=== PATIENT | male | born 1935 | race Caucasian/White ===

== ENCOUNTER 2019-03-30 01:25 | Inpatient (IN) | payer MEDICARE ==
[~2019-03-30] VITALS: Ht 188 cm; Wt 101.4 kg
[~2019-03-30 01:25] MED LIST: AMLO5TAB10 PO; ASPI-482 PO; CRESTOR40 MG PO; DOCU-109 PO; HYDR12.575 PO; Hydrocodone/Acetaminophen PO; METF10007 PO; METH250T3 PO; QUIN40TA16 PO
[2019-03-30] MEDS ORDERED: IV NORMAL SALINE 1000ML BAG 1,000 ML IV ONE (01:45)
[2019-03-30] MEDS ORDERED: ACETAMINOPHEN 500 MG TABLET PO ONE (01:45)
[2019-03-30 02:07] LABS: BASO # 0.1 x10^3/uL (0.0-0.2); BASO % 1 % (0-3); EOS # 0.3 x10^3/uL (0.0-0.7); EOS % 2 % (0-3); HEMATOCRIT 42.3 % (39.0-53.0); HEMOGLOBIN 14.2 g/dL (13.0-17.5); LYMPH # 0.7 x10^3/uL (1.0-4.8); LYMPH % 7 % (24-48); MEAN CORPUSCULAR HEMOGLOBIN 28 pg (25-35); MEAN CORPUSCULAR HGB CONC 34 g/dL (31-37); MEAN CORPUSCULAR VOLUME 83 fL (79-100); MONO # 0.7 x10^3/uL (0.0-1.1); MONO % 6 % (0-9); NEUT % 84 % (31-73); PLATELET COUNT 186 x10^3/uL (140-400); RED BLOOD COUNT 5.07 x10^6/uL (4.30-5.70); RED CELL DISTRIBUTION WIDTH 14.5 % (11.5-14.5); WHITE BLOOD COUNT 10.7 x10^3/uL (4.0-11.0)
[2019-03-30 02:22] LABS: BILIRUBIN,URINE NEGATIVE (NEG); CLARITY,URINE TURBID; COLOR,URINE YELLOW; NITRITE,URINE NEGATIVE (NEG); PROTEIN,URINE 100 mg/dL (NEG-TRACE)
[2019-03-30 02:22] LABS: CALCIUM 9.8 mg/dL (8.5-10.1); CREATININE 1.6 mg/dL (0.7-1.3); GFR 41.6; POTASSIUM 3.9 mmol/L (3.5-5.1)
[2019-03-30 02:25] LABS: INFLUENZA A PATIENT NEGATIVE (NEGATIVE); INFLUENZA B PATIENT NEGATIVE (NEGATIVE)
[2019-03-30 02:29] LABS: BACTERIA,URINE MANY /HPF (0-FEW); SQUAMOUS EPITHELIAL CELL,UR FEW /LPF; WBC,URINE TNTC /HPF (0-4)
[2019-03-30 02:33] LABS: ALBUMIN 3.6 g/dL (3.4-5.0); ALBUMIN/GLOBULIN RATIO 0.9 (1.0-1.7); TOTAL BILIRUBIN 0.5 mg/dL (0.2-1.0); TOTAL PROTEIN 7.7 g/dL (6.4-8.2)
[2019-03-30] MEDS ORDERED: cefTRIAXone IV Push 1 GM VIAL. IVP ONE (02:45)
[2019-03-30 03:44] VITALS: BP 121/65
--- NOTE | 2019-03-30 03:44 | PHYS DOC ---
Past Medical History Past Medical History: Diabetes-Type II, High Cholesterol, Hypertension, TIA Past Surgical History: Knee Replacement, Other Additional Past Surgical Histo: BILAT KNEE, 'CAROTID SURGERY', 'BACK SURGERY' Alcohol Use: None Drug Use: None Adult General Chief Complaint Chief Complaint: WEAKNESS/GENERALIZED HPI HPI Patient is a 83 year old male who is presenting with weakness and basically just could not get up out of a chair tonight so called 911 for assistance. Patient was noted to have a temperature of 101 by paramedics and brought here for evaluation he says he actually feels okay does have a runny nose no sore throat no cough no chest pain or shortness of breath no abdominal pain no vomiting denies any trouble urinating. Review of Systems Review of Systems Respiratory: Denies cough or shortness of breath [] Cardiovascular: No additional information not addressed in HPI [] GI: Denies abdominal pain, nausea, vomiting, bloody stools or diarrhea [] : Denies dysuria or hematuria [] Musculoskeletal: Denies back pain or joint pain [] Integument: Denies rash or skin lesions [] All other systems were reviewed and found to be within normal limits, except as documented in this note. Current Medications Current Medications Current Medications Medications (Trade) Dose Ordered Sig/Genesis Start Time Stop Time Status Last Admin Dose Admin Acetaminophen (Tylenol) 1,000 mg 1X ONCE 03/30/19 01:45 03/30/19 01:47 DC 03/30/19 01:45 1,000 MG Ceftriaxone Sodium (Rocephin) 1 gm 1X ONCE 03/30/19 02:45 03/30/19 02:46 DC 03/30/19 02:45 1 GM Sodium Chloride 1,000 ml @ 1,000 mls/hr 1X ONCE 03/30/19 01:45 03/30/19 02:44 DC 03/30/19 01:45 1,000 MLS/HR Allergies Allergies Allergies Coded Allergies Type Severity Reaction Last Updated Verified No Known Drug Allergies 02/25/14 No Physical Exam Physical Exam Constitutional: Well developed, well nourished, no acute distress, non-toxic appearance. [] HENT: Normocephalic, atraumatic, bilateral external ears normal, oropharynx moist, there are some scattered exudate in the posterior oropharynx Eyes: PERRLA, EOMI, conjunctiva normal, no discharge. [] Neck: Normal range of motion, no tenderness, supple, no stridor. [] Cardiovascular:Heart rate regular rhythm, no murmur [] Lungs & Thorax: Bilateral breath sounds clear to auscultation [] Abdomen: Bowel sounds normal, soft, no tenderness, no masses, no pulsatile masses. [] Skin: Warm, dry, no erythema, no rash. [] Back: No tenderness, no CVA tenderness. [] Extremities: No tenderness, no cyanosis, no clubbing, ROM intact, no edema. [] Neurologic: Alert and oriented X 3, normal motor function, normal sensory function, no focal deficits noted. [] Psychologic: Affect normal, judgement normal, mood normal. [] Current Patient Data Vital Signs Vital Signs Date Time Temp Pulse Resp B/P (MAP) Pulse Ox O2 Delivery O2 Flow Rate FiO2 03/30/19 01:25 100.3 108 18 163/76 (105) 96 Room Air 100.3 Lab Values Laboratory Tests Test 03/30/19 01:45 03/30/19 01:50 03/30/19 02:10 Influenza Type A Antigen Negative (NEGATIVE) Influenza Type B Antigen Negative (NEGATIVE) White Blood Count 10.7 x10^3/uL (4.0-11.0) Red Blood Count 5.07 x10^6/uL (4.30-5.70) Hemoglobin 14.2 g/dL (13.0-17.5) Hematocrit 42.3 % (39.0-53.0) Mean Corpuscular Volume 83 fL (79-100) Mean Corpuscular Hemoglobin 28 pg (25-35) Mean Corpuscular Hemoglobin Concent 34 g/dL (31-37) Red Cell Distribution Width 14.5 % (11.5-14.5) Platelet Count 186 x10^3/uL (140-400) Neutrophils (%) (Auto) 84 % (31-73) H Lymphocytes (%) (Auto) 7 % (24-48) L Monocytes (%) (Auto) 6 % (0-9) Eosinophils (%) (Auto) 2 % (0-3) Basophils (%) (Auto) 1 % (0-3) Neutrophils # (Auto) 9.0 x10^3/uL (1.8-7.7) H Lymphocytes # (Auto) 0.7 x10^3/uL (1.0-4.8) L Monocytes # (Auto) 0.7 x10^3/uL (0.0-1.1) Eosinophils # (Auto) 0.3 x10^3/uL (0.0-0.7) Basophils # (Auto) 0.1 x10^3/uL (0.0-0.2) Sodium Level 141 mmol/L (136-145) Potassium Level 3.9 mmol/L (3.5-5.1) Chloride Level 103 mmol/L (98-107) Carbon Dioxide Level 27 mmol/L (21-32) Anion Gap 11 (6-14) Blood Urea Nitrogen 27 mg/dL (8-26) H Creatinine 1.6 mg/dL (0.7-1.3) H Estimated GFR (Cockcroft-Gault) 41.6 BUN/Creatinine Ratio 17 (6-20) Glucose Level 187 mg/dL (70-99) H Lactic Acid Level 1.8 mmol/L (0.4-2.0) Calcium Level 9.8 mg/dL (8.5-10.1) Total Bilirubin 0.5 mg/dL (0.2-1.0) Aspartate Amino Transferase (AST) 14 U/L (15-37) L Alanine Aminotransferase (ALT) 17 U/L (16-63) Alkaline Phosphatase 75 U/L (46-116) Troponin I Quantitative < 0.017 ng/mL (0.000-0.055) Total Protein 7.7 g/dL (6.4-8.2) Albumin 3.6 g/dL (3.4-5.0) Albumin/Globulin Ratio 0.9 (1.0-1.7) L Lipase 144 U/L (73-393) Procalcitonin < 0.10 ng/mL (0.00-0.10) Urine Collection Type Unknown Urine Color Yellow Urine Clarity Turbid Urine pH 6.0 Urine Specific [place] 1.020 Urine Protein 100 mg/dL (NEG-TRACE) Urine Glucose (UA) >=1000 mg/dL (NEG) Urine Ketones (Stick) Negative mg/dL (NEG) Urine Blood Moderate (NEG) Urine Nitrite Negative (NEG) Urine Bilirubin Negative (NEG) Urine Urobilinogen Dipstick 1.0 mg/dL (0.2 mg/dL) Urine Leukocyte Esterase Large (NEG) Urine RBC 6-10 /HPF (0-2) Urine WBC Tntc /HPF (0-4) Urine Squamous Epithelial Cells Few /LPF Urine Bacteria Many /HPF (0-FEW) Urine Mucus Slight /LPF Laboratory Tests 03/30/19 01:50 Laboratory Tests 03/30/19 01:50 EKG EKG []Very poor baseline but no obvious STEMI was identified fairly difficult to assess for the rhythm probably sinus Radiology/Procedures Radiology/Procedures [] Impressions: Chest x-ray no definite pneumonia was identified final read is currently pending. Course & Med Decision Making Course & Med Decision Making Pertinent Labs and Imaging studies reviewed. (See chart for details) []Blood pressure 120 systolic this is an 83-year-old male with the above past medical history who is presenting with fever weakness found to have temp of 101 for paramedics 100.3 here ER workup reveals a UTI flu swab negative rapid strep test negative due to his weakness we have admitted him for IV antibiotics and fluids to the service of Dr. glenys Villeda Disclaimer Christiana Disclaimer This electronic medical record was generated, in whole or in part, using a voice recognition dictation system. Departure Departure Impression: Primary Impression: UTI (urinary tract infection) Disposition: ADMITTED INPATIENT Admitting Physician: HIMEfra Condition: STABLE Referrals: RONEL OQUENDO DO (PCP) ROYAL HERNÁNDEZ MD Mar 30, 2019 03:44
[2019-03-30] MEDS: IV NORMAL SALINE 1000ML BAG 1,000 ML IV SCH ×2 (04:29→18:21)
--- NOTE | 2019-03-30 06:40 | RAD ---
EXAM: CHEST ONE VIEW. HISTORY: Fever. COMPARISON: None. FINDINGS: A frontal view of the chest is obtained. The projection is lordotic. There are no confluent infiltrates. There is no pneumothorax or pleural effusion. The heart is not enlarged. IMPRESSION: 1. No confluent infiltrates. Electronically signed by: Marilia Price MD (03/30/2019 6:38 AM) [facility]
[2019-03-30 07:00] VITALS: BP 111/79
[2019-03-30] MEDS ORDERED: HYDROCODONE PO PRN (08:45)
[2019-03-30] MEDS ORDERED: ACETAMINOPHEN PO PRN (08:45)
[2019-03-30] MEDS ORDERED: DEXTROSE 50% 25 GM / 50ML DISP.SYRIN. IV PRN (08:45)
[2019-03-30] MEDS ORDERED: DOCUSATE SODIUM 100 MG CAPSULE. PO PRN (08:45)
--- NOTE | 2019-03-30 08:45 | PDOC1 ---
History and Physical Date of Admission Date of Admission DATE: 03/30/19 TIME: 08:42 Identification/Chief Complaint Chief Complaint Fever Source Source: Patient History of Present Illness History of Present Illness Mr Mccallum is an 83 yo M w/ PMHx Diabetes-Type II, High Cholesterol, Hypertension, TIA who is presenting with weakness and basically just could not get up out of a chair on 03/29 and so his called 911 for assistance. Patient was noted to have a temperature of 101 by paramedics and brought here for evaluation he says he actually feels okay does have a runny nose no sore throat no cough no chest pain or shortness of breath no abdominal pain no vomiting denies any trouble urinating. Found with hematuria and leukocyte esterase posi tive. Negative CXR, negative flu swab, but tachycardic and febrile called for admission for sepsis and possible UTI. EKG reviewed NSR but low quality. He was noted with Cr of 1.6, no hx of renal disease. He also notes urinary frequency and abdominal fullness. 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 After some IVF and rocephin he feels a bit improved. Temp down to 100.3F Past Medical History Cardiovascular: HTN, Hyperlipidemia Pulmonary: No pertinent hx CENTRAL NERVOUS SYSTEM: TIA GI: No pertinent hx Heme/Onc: No pertinent hx Hepatobiliary: No pertinent hx Psych: No pertinent hx Rheumatologic: No pertinent hx Infectious disease: No pertinent hx Renal/: No pertinent hx Endocrine: Diabetes Dermatology: No pertinent hx Past Surgical History Past Surgical History: Total knee replacement, No pertinent history (Lumbar laminectomy. Carotid endarterectomy) Family History Family History: Cancer (Pancreatic in brother), Hypertension (Father) Social History Smoke: No ALCOHOL: none Drugs: None Current Medications Current Medications Current Medications Acetaminophen (Tylenol) 1,000 mg 1X ONCE PO Last administered on 03/30/19at 01:45; Start 03/30/19 at 01:45; Stop 03/30/19 at 01:47; Status DC Sodium Chloride 1,000 ml @ 1,000 mls/hr 1X ONCE IV Last administered on 03/30/19at 01:45; Start 03/30/19 at 01:45; Stop 03/30/19 at 02:44; Status DC Ceftriaxone Sodium (Rocephin) 1 gm 1X ONCE IVP Last administered on 03/30/19at 02:45; Start 03/30/19 at 02:45; Stop 03/30/19 at 02:46; Status DC Sodium Chloride 1,000 ml @ 75 mls/hr [id number] IV Last administered on 03/30/19at 04:29; Start 03/30/19 at 03:30; Stop 03/31/19 at 03:29 Insulin Glargine (Lantus Syringe) 24 unit QHS SQ ; Start 03/30/19 at 21:00 Active Scripts Active [Hydrocodone/Acetaminophen] 1 TAB Tablet 2 Tab PO PRN Q6HRS PRN [Hydrocodone/Acetaminophen] 1 TAB Tablet 1 Tab PO PRN Q6HRS PRN Colace (Docusate Sodium) 100 Mg Capsule 100 Mg PO BID PRN Reported Hydrochlorothiazide Capsule (Hydrochlorothiazide) 12.5 Mg Capsule 12.5 Mg PO DAILY last dose this am next dose tomorrow am Crestor (Rosuvastatin Calcium) 40 Mg Tablet 1 Tab PO HS last dose last evening next dose this evening Quinapril Hcl 40 Mg Tablet 1 Tab PO BID last dose this am next dose this evening Methyldopa 250 Mg Tablet 1 Tab PO BID last dose this am next dose this evening Metformin Hcl 1,000 Mg Tablet 1 Tab PO BID last dose this am nest dose this evening with supper Amlodipine Besylate 5 Mg Tablet 1 Tab PO BID last dose this am next dose this evening Aspir 81 (Aspirin) 81 Mg Tablet. 1 Tab PO DAILY last dose this am next dose tomorrow morning Allergies Allergies: Coded Allergies: No Known Drug Allergies (Unverified , 02/25/14) ROS General: YES: Fatigue, Malaise, Appetite; No: Chills, Night Sweats, Other PSYCHOLOGICAL ROS: YES: Disorientation, Memory difficulties; No: Anxiety, Behavioral Disorder, Concentration difficultie, Decreased libido, Depression, Hallucinations, Hostility, Irritablity, Mood Swings, Obsessive thoughts, Physical abuse, Sexual abuse, Sleep disturbances, Suicidal ideation, Other Eyes: No Blurry vision, No Decreased vision, No Double vision, No Dry eyes, No Excessive tearing, No Eye Pain, No Itchy Eyes, No Loss of vision, No Photophobia, No Scotomata, No Uses contacts, No Uses glasses, No Other HEENT: No: Heacaches, Visual Changes, Hearing change, Nasal congestion, Nasal discharge, Oral lesions, Sinus pain, Sore Throat, Epistaxis, Sneezing, Snoring, Tinnitus, Vertigo, Vocal changes, Other ALLERGY AND IMMUNOLOGY: No: Hives, Insect Bite Sensitivity, Itchy/Watery Eyes, Nasal Congestion, Post Nasal Drip, Seasonal Allergies, Other Hematological and Lymphatic: No: Bleeding Problems, Blood Clots, Blood Transfusions, Brusing, Night Sweats, Pallor, Swollen Lymph Nodes, Other ENDOCRINE: No: Breast Changes, Galactorrhea, Hair Pattern Changes, Hot Flashes, Malaise/lethargy, Mood Swings, Palpitations, Polydipsia/polyuria, Skin Changes, Temperature Intolerance, Unexpected Weight Changes, Other Breast: No New/Changing Breast Lumps, No Nipple changes, No Nipple discharge, No Other Respiratory: No: Cough, Hemoptysis, Orthopnea, Pleuritic Pain, Shortness of breath, SOB with excertion, Sputum Changes, Stridor, Tachypnea, Wheezing, Other Cardiovascular: No Chest Pain, No Palpitations, No Orthopnea, No Paroxysmal Noc. Dyspnea, No Edema, No Lt Headedness, No Other Gastrointestinal: No Nausea, No Vomiting, No Abdominal Pain, No Diarrhea, No Constipation, No Melena, No Hematochezia, No Other Genitourinary: YES Dysuria, YES Frequency, YES Retention; No Incontinence, No Hematuria, No Discharge, No Urgency, No Pain, No Flank Pain, No Other, No , No , No , No , No , No , No Musculoskeletal: No Gait Disturbance, No Joint Pain, No Joint Stiffness, No Joint Swelling, No Muscle Pain, No Muscular Weakness, No Pain In:, No Swelling In:, No Other Neurological: No Behavorial Changes, No Bowel/Bladder ControlChng, No Confusion, No Dizziness, No Gait Disturbance, No Headaches, No Impaired Coord/balance, No Memory Loss, No Numbness/Tingling, No Seizures, No Speech Problems, No Tremors, No Visual Changes, No Weakness, No Other Skin: No Dry Skin, No Eczema, No Hair Changes, No Lumps, No Mole Changes, No Mottling, No Nail Changes, No Pruritus, No Rash, No Skin Lesion Changes, No Other, No Acne Physical Exam General: Alert, Cooperative, No acute distress HEENT: Atraumatic, PERRLA, EOMI, Mucous membr. moist/pink Lungs: Clear to auscultation, Normal air movement Heart: S1S2, RRR, no gallops, no murmurs Abdomen: Normal bowel sounds, Soft, No hepatosplenomegaly, No masses, Other (Suprapubic tenderness) Male Genitals Exam: normal genitalia, other (Enlarged prostate) Extremities: No clubbing, No cyanosis, No edema, Normal pulses, No tenderness/swelling Skin: No rashes, No breakdown, No significant lesion Neuro: Normal gait, Normal speech, Strength at 5/5 X4 ext, Normal tone, Sensation intact, Cranial nerves 3-12 NL, Reflexes 2+ Psych/Mental Status: Mental status NL, Mood NL Vitals Vitals Vital Signs Date Time Temp Pulse Resp B/P (MAP) Pulse Ox O2 Delivery O2 Flow Rate FiO2 03/30/19 07:00 98.4 74 18 111/79 (90) 98 Room Air 98.4 Labs Labs Laboratory Tests Test 03/30/19 01:45 03/30/19 01:50 03/30/19 02:10 Influenza Type A Antigen Negative (NEGATIVE) Influenza Type B Antigen Negative (NEGATIVE) Group A Streptococcus Rapid Negative (NEGATIVE) White Blood Count 10.7 x10^3/uL (4.0-11.0) Red Blood Count 5.07 x10^6/uL (4.30-5.70) Hemoglobin 14.2 g/dL (13.0-17.5) Hematocrit 42.3 % (39.0-53.0) Mean Corpuscular Volume 83 fL (79-100) Mean Corpuscular Hemoglobin 28 pg (25-35) Mean Corpuscular Hemoglobin Concent 34 g/dL (31-37) Red Cell Distribution Width 14.5 % (11.5-14.5) Platelet Count 186 x10^3/uL (140-400) Neutrophils (%) (Auto) 84 % (31-73) Lymphocytes (%) (Auto) 7 % (24-48) Monocytes (%) (Auto) 6 % (0-9) Eosinophils (%) (Auto) 2 % (0-3) Basophils (%) (Auto) 1 % (0-3) Neutrophils # (Auto) 9.0 x10^3/uL (1.8-7.7) Lymphocytes # (Auto) 0.7 x10^3/uL (1.0-4.8) Monocytes # (Auto) 0.7 x10^3/uL (0.0-1.1) Eosinophils # (Auto) 0.3 x10^3/uL (0.0-0.7) Basophils # (Auto) 0.1 x10^3/uL (0.0-0.2) Sodium Level 141 mmol/L (136-145) Potassium Level 3.9 mmol/L (3.5-5.1) Chloride Level 103 mmol/L (98-107) Carbon Dioxide Level 27 mmol/L (21-32) Anion Gap 11 (6-14) Blood Urea Nitrogen 27 mg/dL (8-26) Creatinine 1.6 mg/dL (0.7-1.3) Estimated GFR (Cockcroft-Gault) 41.6 BUN/Creatinine Ratio 17 (6-20) Glucose Level 187 mg/dL (70-99) Lactic Acid Level 1.8 mmol/L (0.4-2.0) Calcium Level 9.8 mg/dL (8.5-10.1) Total Bilirubin 0.5 mg/dL (0.2-1.0) Aspartate Amino Transf (AST/SGOT) 14 U/L (15-37) Alanine Aminotransferase (ALT/SGPT) 17 U/L (16-63) Alkaline Phosphatase 75 U/L (46-116) Troponin I Quantitative < 0.017 ng/mL (0.000-0.055) Total Protein 7.7 g/dL (6.4-8.2) Albumin 3.6 g/dL (3.4-5.0) Albumin/Globulin Ratio 0.9 (1.0-1.7) Lipase 144 U/L (73-393) Procalcitonin < 0.10 ng/mL (0.00-0.10) Urine Collection Type Unknown Urine Color Yellow Urine Clarity Turbid Urine pH 6.0 Urine Specific [place] 1.020 Urine Protein 100 mg/dL (NEG-TRACE) Urine Glucose (UA) >=1000 mg/dL (NEG) Urine Ketones (Stick) Negative mg/dL (NEG) Urine Blood Moderate (NEG) Urine Nitrite Negative (NEG) Urine Bilirubin Negative (NEG) Urine Urobilinogen Dipstick 1.0 mg/dL (0.2 mg/dL) Urine Leukocyte Esterase Large (NEG) Urine RBC 6-10 /HPF (0-2) Urine WBC Tntc /HPF (0-4) Urine Squamous Epithelial Cells Few /LPF Urine Bacteria Many /HPF (0-FEW) Urine Mucus Slight /LPF Laboratory Tests Test 03/30/19 01:45 03/30/19 01:50 03/30/19 02:10 Influenza Type A Antigen Negative (NEGATIVE) Influenza Type B Antigen Negative (NEGATIVE) Group A Streptococcus Rapid Negative (NEGATIVE) White Blood Count 10.7 x10^3/uL (4.0-11.0) Red Blood Count 5.07 x10^6/uL (4.30-5.70) Hemoglobin 14.2 g/dL (13.0-17.5) Hematocrit 42.3 % (39.0-53.0) Mean Corpuscular Volume 83 fL (79-100) Mean Corpuscular Hemoglobin 28 pg (25-35) Mean Corpuscular Hemoglobin Concent 34 g/dL (31-37) Red Cell Distribution Width 14.5 % (11.5-14.5) Platelet Count 186 x10^3/uL (140-400) Neutrophils (%) (Auto) 84 % (31-73) Lymphocytes (%) (Auto) 7 % (24-48) Monocytes (%) (Auto) 6 % (0-9) Eosinophils (%) (Auto) 2 % (0-3) Basophils (%) (Auto) 1 % (0-3) Neutrophils # (Auto) 9.0 x10^3/uL (1.8-7.7) Lymphocytes # (Auto) 0.7 x10^3/uL (1.0-4.8) Monocytes # (Auto) 0.7 x10^3/uL (0.0-1.1) Eosinophils # (Auto) 0.3 x10^3/uL (0.0-0.7) Basophils # (Auto) 0.1 x10^3/uL (0.0-0.2) Sodium Level 141 mmol/L (136-145) Potassium Level 3.9 mmol/L (3.5-5.1) Chloride Level 103 mmol/L (98-107) Carbon Dioxide Level 27 mmol/L (21-32) Anion Gap 11 (6-14) Blood Urea Nitrogen 27 mg/dL (8-26) Creatinine 1.6 mg/dL (0.7-1.3) Estimated GFR (Cockcroft-Gault) 41.6 BUN/Creatinine Ratio 17 (6-20) Glucose Level 187 mg/dL (70-99) Lactic Acid Level 1.8 mmol/L (0.4-2.0) Calcium Level 9.8 mg/dL (8.5-10.1) Total Bilirubin 0.5 mg/dL (0.2-1.0) Aspartate Amino Transf (AST/SGOT) 14 U/L (15-37) Alanine Aminotransferase (ALT/SGPT) 17 U/L (16-63) Alkaline Phosphatase 75 U/L (46-116) Troponin I Quantitative < 0.017 ng/mL (0.000-0.055) Total Protein 7.7 g/dL (6.4-8.2) Albumin 3.6 g/dL (3.4-5.0) Albumin/Globulin Ratio 0.9 (1.0-1.7) Lipase 144 U/L (73-393) Procalcitonin < 0.10 ng/mL (0.00-0.10) Urine Collection Type Unknown Urine Color Yellow Urine Clarity Turbid Urine pH 6.0 Urine Specific [place] 1.020 Urine Protein 100 mg/dL (NEG-TRACE) Urine Glucose (UA) >=1000 mg/dL (NEG) Urine Ketones (Stick) Negative mg/dL (NEG) Urine Blood Moderate (NEG) Urine Nitrite Negative (NEG) Urine Bilirubin Negative (NEG) Urine Urobilinogen Dipstick 1.0 mg/dL (0.2 mg/dL) Urine Leukocyte Esterase Large (NEG) Urine RBC 6-10 /HPF (0-2) Urine WBC Tntc /HPF (0-4) Urine Squamous Epithelial Cells Few /LPF Urine Bacteria Many /HPF (0-FEW) Urine Mucus Slight /LPF Images Images CXR - A frontal view of the chest is obtained. The projection is lordotic. There are no confluent infiltrates. There is no pneumothorax or pleural effusion. The heart is not enlarged. VTE Prophylaxis Ordered VTE Prophylaxis Devices: Yes VTE Pharmacological Prophylaxi: Yes Assessment/Plan Assessment/Plan A/P: Dysuria - with history of urinary retention, enlarged prostate, positive UA, started on empiric rocephin. Will get abdominal US to assess bladder and kidneys. Check PSA, f/u culture Unable to walk - likely 2/2 weakness from infection Sepsis - Given IVF and empiric rocephin Acute confusion - with history of MCI per . Likely 2/2 infectious state, will monitor DM - will hold metformin for MAKI. Basal bolus plus insulin while in house MAKI - likely vasomotor nephropathy from poor PO intake HTN - cont meds HLD - cont meds TIAs - will cont statin and ASA FEN - NPO until abdominal US, then ADA diet PPX - lovenox FULL CODE Dispo - inpatient for sepsis 2/2 UTI in male RAMAN ORELLANA MD Mar 30, 2019 08:45
[2019-03-30] MEDS: amLODIPine BESYLATE 5 MG TABLET PO SCH ×2 (10:23→21:39)
[2019-03-30] MEDS: ASPIRIN ENTERIC COATED 81 MG TABLET.DR. PO SCH (10:23)
[2019-03-30] MEDS: hydroCHLOROthiazide 12.5 MG CAPSULE PO SCH (10:23)
[2019-03-30] MEDS: METHYLDOPA 250 MG TABLET PO SCH ×2 (10:23→21:39)
[2019-03-30] MEDS: LISINOPRIL 20 MG TABLET PO SCH ×2 (10:24→21:38)
[2019-03-30 11:00] VITALS: BP 120/86
--- NOTE | 2019-03-30 11:16 | RAD ---
Indication:Renal failure. TECHNIQUE: Grayscale, color Doppler of the kidneys and bladder obtained. COMPARISON:None FINDINGS: The right kidney measures 12.8 x 6.1 x 5.3 cm without hydronephrosis. Left kidney measures 11.8 x 5.0 x 6.8 cm without hydronephrosis. Prostate is mildly enlarged measuring 5.7 cm in longest dimension. Post void urinary bladder volume of 248 cc. IMPRESSION: 1. No hydronephrosis. 2. Mild prostatomegaly. Correlate with physical exam and PSA. 3. Significant residual post void bladder volume. Electronically signed by: Alf Stapleton DO (03/30/2019 11:13 AM) [facility]
[2019-03-30] MEDS: INSULIN LISPRO 300 UNITS/3 ML VIAL. SQ SCH ×3 (11:30→21:00)
[2019-03-30] MEDS: TAMSULOSIN 0.4 MG CAP.ER.24H. PO SCH (12:04)
[2019-03-30] MEDS: ENOXAPARIN 40 MG/0.4 ML SYRINGE. SQ SCH (12:05)
[2019-03-30] MEDS: cefTRIAXone IV Push 1 GM VIAL. IVP SCH (12:05)
[2019-03-30 14:49] VITALS: BP 130/56
[2019-03-30 19:00] VITALS: BP 128/69
[2019-03-30] MEDS: INSULIN GLARGINE SYRINGE. SQ SCH (21:00)
[2019-03-30] MEDS: LACTOBACILLUS RHAMNOSUS GG 1 CAPSULE. PO SCH (21:38)
[2019-03-30] MEDS: ATORVASTATIN CALCIUM 40 MG TABLET. PO SCH (21:39)
[2019-03-30 23:02] VITALS: BP 126/62
[2019-03-31] MEDS ORDERED: HYDROmorphone 2 MG/ML VIAL IVP PRN
[2019-03-31] MEDS ORDERED: HALOPERIDOL LACTATE 5 MG/ML VIAL. IVP PRN
[2019-03-31 03:18] VITALS: BP 137/51
[2019-03-31] MEDS: INSULIN LISPRO 300 UNITS/3 ML VIAL. SQ SCH ×4 (07:30→21:53)
[2019-03-31 08:20] VITALS: BP 142/60
[2019-03-31] MEDS: LISINOPRIL 20 MG TABLET PO SCH ×2 (09:29→21:46)
[2019-03-31] MEDS: hydroCHLOROthiazide 12.5 MG CAPSULE PO SCH (09:29)
[2019-03-31] MEDS: TAMSULOSIN 0.4 MG CAP.ER.24H. PO SCH (09:29)
[2019-03-31] MEDS: amLODIPine BESYLATE 5 MG TABLET PO SCH ×2 (09:30→21:48)
[2019-03-31] MEDS: LACTOBACILLUS RHAMNOSUS GG 1 CAPSULE. PO SCH ×2 (09:30→21:45)
[2019-03-31] MEDS: cefTRIAXone IV Push 1 GM VIAL. IVP SCH (09:30)
[2019-03-31] MEDS: ASPIRIN ENTERIC COATED 81 MG TABLET.DR. PO SCH (09:30)
[2019-03-31] MEDS: METHYLDOPA 250 MG TABLET PO SCH ×2 (09:31→21:45)
[2019-03-31 11:10] VITALS: BP 139/63
--- NOTE | 2019-03-31 11:11 | EKG ---
[facility] [address] [place] [address] Test Date: 2019-03-30 Test Time: 01:37:49 Pat Name: ANDREW YUSUF Department: Room: 554 1 Gender: M Curriculum Counselor: : [id number] Requested By: ROYAL HERNÁNDEZ Order Number: [id number] Reading MD: Doyle Roy MD Measurements Intervals [place] Rate: 110 P: -51 AL: 96 QRS: -46 QRSD: 96 T: 31 QT: 306 QTc: 419 Interpretive Statements SIGNIFICANT BASELINE ARTIFACT PROBABLE SINUS TACHYCARDIA Electronically Signed On 04-09-2019 9:44:50 CDT by Doyle Roy MD
--- NOTE | 2019-03-31 11:12 | PDOC ---
PROGRESS NOTES History of Present Illness History of Present Illness Images Images CXR - A frontal view of the chest is obtained. The projection is lordotic. There are no confluent infiltrates. There is no pneumothorax or pleural effusion. The heart is not enlarged. VTE Prophylaxis Ordered VTE Prophylaxis Devices: Yes VTE Pharmacological Prophylaxi: Yes Assessment/Plan Assessment/Plan Dysuria - with history of urinary retention, /// empiric rocephin. Will get abdominal US to assess bladder and kidneys. Check PSA, f/u culture Unable to walk - likely 2/2 weakness //ENCEPHALOPATHY, METABOLIC Sepsis - Given IVF and empiric rocephin Significant residual post void bladder volume. Acute confusion - with history of MCI per . Likely 2/2 infectious state, will monitor DM - will hold metformin for MAKI. Basal bolus plus insulin MAKI - likely vasomotor nephropathy from poor PO intake HTN - cont meds HLD - cont meds TIAs - will cont statin and ASA FEN - ADA diet PPX - lovenox FULL CODE Dispo - inpatient for sepsis 2/2 UTI in male UROLOGY CONSULT MIDLINE OR PICC 29 MIN PT EXAM, CHART REVIEW, > 50% OF TIME SPENT WITH EXAM, CHART REVIEW, PT CARE COORDINATION Vitals Vitals Vital Signs Date Time Temp Pulse Resp B/P (MAP) Pulse Ox O2 Delivery O2 Flow Rate FiO2 03/31/19 09:31 86 137/51 03/31/19 08:20 98.3 20 94 Room Air 98.3 Physical Exam General: Alert, Cooperative, No acute distress Heart: Regular rate Lungs: Clear Abdomen: Normal bowel sounds, Soft, No hepatosplenomegaly, No masses, Other (Suprapubic tenderness) Extremities: No clubbing, No cyanosis, No edema, Normal pulses, No tenderness/swelling Skin: No rashes, No breakdown, No significant lesion Labs LABS Indication:Renal failure. TECHNIQUE: Grayscale, color Doppler of the kidneys and bladder obtained. COMPARISON:None FINDINGS: The right kidney measures 12.8 x 6.1 x 5.3 cm without hydronephrosis. Left kidney measures 11.8 x 5.0 x 6.8 cm without hydronephrosis. Prostate is mildly enlarged measuring 5.7 cm in longest dimension. Post void urinary bladder volume of 248 cc. IMPRESSION: 1. No hydronephrosis. 2. Mild prostatomegaly. Correlate with physical exam and PSA. 3. Significant residual post void bladder volume. Electronically signed by: Alf Stapleton DO (03/30/2019 11:13 AM) [facility] DICTATED and SIGNED BY: ALF STAPLETON DO DATE: 03/30/19 1113 EXAM: CHEST ONE VIEW. HISTORY: Fever. COMPARISON: None. FINDINGS: A frontal view of the chest is obtained. The projection is lordotic. There are no confluent infiltrates. There is no pneumothorax or pleural effusion. The heart is not enlarged. IMPRESSION: 1. No confluent infiltrates. Electronically signed by: Marilia Price MD (03/30/2019 6:38 AM) [facility] DICTATED and SIGNED BY: ALFONSO PRICE MD DATE: 03/30/19 0638 Indication:Renal failure. TECHNIQUE: Grayscale, color Doppler of the kidneys and bladder obtained. COMPARISON:None FINDINGS: The right kidney measures 12.8 x 6.1 x 5.3 cm without hydronephrosis. Left kidney measures 11.8 x 5.0 x 6.8 cm without hydronephrosis. Prostate is mildly enlarged measuring 5.7 cm in longest dimension. Post void urinary bladder volume of 248 cc. IMPRESSION: 1. No hydronephrosis. 2. Mild prostatomegaly. Correlate with physical exam and PSA. 3. Significant residual post void bladder volume. Electronically signed by: Alf Stapleton DO (03/30/2019 11:13 AM) [facility] DICTATED and SIGNED BY: ALF STAPLETON DO DATE: 03/30/19 1113 Laboratory Tests Test 03/30/19 12:29 03/30/19 16:50 03/30/19 20:52 03/31/19 08:15 Glucose (Fingerstick) 108 mg/dL (70-99) 158 mg/dL (70-99) 167 mg/dL (70-99) 130 mg/dL (70-99) Comment Review of Relevant I have reviewed the following items zuri (where applicable) has been applied. Labs Laboratory Tests Test 03/30/19 01:45 03/30/19 01:50 03/30/19 02:10 03/30/19 12:29 Influenza Type A Antigen Negative (NEGATIVE) Influenza Type B Antigen Negative (NEGATIVE) Group A Streptococcus Rapid Negative (NEGATIVE) White Blood Count 10.7 x10^3/uL (4.0-11.0) Red Blood Count 5.07 x10^6/uL (4.30-5.70) Hemoglobin 14.2 g/dL (13.0-17.5) Hematocrit 42.3 % (39.0-53.0) Mean Corpuscular Volume 83 fL (79-100) Mean Corpuscular Hemoglobin 28 pg (25-35) Mean Corpuscular Hemoglobin Concent 34 g/dL (31-37) Red Cell Distribution Width 14.5 % (11.5-14.5) Platelet Count 186 x10^3/uL (140-400) Neutrophils (%) (Auto) 84 % (31-73) Lymphocytes (%) (Auto) 7 % (24-48) Monocytes (%) (Auto) 6 % (0-9) Eosinophils (%) (Auto) 2 % (0-3) Basophils (%) (Auto) 1 % (0-3) Neutrophils # (Auto) 9.0 x10^3/uL (1.8-7.7) Lymphocytes # (Auto) 0.7 x10^3/uL (1.0-4.8) Monocytes # (Auto) 0.7 x10^3/uL (0.0-1.1) Eosinophils # (Auto) 0.3 x10^3/uL (0.0-0.7) Basophils # (Auto) 0.1 x10^3/uL (0.0-0.2) Sodium Level 141 mmol/L (136-145) Potassium Level 3.9 mmol/L (3.5-5.1) Chloride Level 103 mmol/L (98-107) Carbon Dioxide Level 27 mmol/L (21-32) Anion Gap 11 (6-14) Blood Urea Nitrogen 27 mg/dL (8-26) Creatinine 1.6 mg/dL (0.7-1.3) Estimated GFR (Cockcroft-Gault) 41.6 BUN/Creatinine Ratio 17 (6-20) Glucose Level 187 mg/dL (70-99) Lactic Acid Level 1.8 mmol/L (0.4-2.0) Calcium Level 9.8 mg/dL (8.5-10.1) Total Bilirubin 0.5 mg/dL (0.2-1.0) Aspartate Amino Transf (AST/SGOT) 14 U/L (15-37) Alanine Aminotransferase (ALT/SGPT) 17 U/L (16-63) Alkaline Phosphatase 75 U/L (46-116) Troponin I Quantitative < 0.017 ng/mL (0.000-0.055) Total Protein 7.7 g/dL (6.4-8.2) Albumin 3.6 g/dL (3.4-5.0) Albumin/Globulin Ratio 0.9 (1.0-1.7) Lipase 144 U/L (73-393) Procalcitonin < 0.10 ng/mL (0.00-0.10) Urine Collection Type Unknown Urine Color Yellow Urine Clarity Turbid Urine pH 6.0 Urine Specific [place] 1.020 Urine Protein 100 mg/dL (NEG-TRACE) Urine Glucose (UA) >=1000 mg/dL (NEG) Urine Ketones (Stick) Negative mg/dL (NEG) Urine Blood Moderate (NEG) Urine Nitrite Negative (NEG) Urine Bilirubin Negative (NEG) Urine Urobilinogen Dipstick 1.0 mg/dL (0.2 mg/dL) Urine Leukocyte Esterase Large (NEG) Urine RBC 6-10 /HPF (0-2) Urine WBC Tntc /HPF (0-4) Urine Squamous Epithelial Cells Few /LPF Urine Bacteria Many /HPF (0-FEW) Urine Mucus Slight /LPF Glucose (Fingerstick) 108 mg/dL (70-99) Test 03/30/19 16:50 03/30/19 20:52 03/31/19 08:15 Glucose (Fingerstick) 158 mg/dL (70-99) 167 mg/dL (70-99) 130 mg/dL (70-99) Laboratory Tests Test 03/30/19 12:29 03/30/19 16:50 03/30/19 20:52 03/31/19 08:15 Glucose (Fingerstick) 108 mg/dL (70-99) 158 mg/dL (70-99) 167 mg/dL (70-99) 130 mg/dL (70-99) Microbiology 03/30/19 Blood Culture - Preliminary, Resulted NO GROWTH AFTER 1 DAY Medications Current Medications Acetaminophen (Tylenol) 1,000 mg 1X ONCE PO Last administered on 03/30/19at 01:45; Start 03/30/19 at 01:45; Stop 03/30/19 at 01:47; Status DC Sodium Chloride 1,000 ml @ 1,000 mls/hr 1X ONCE IV Last administered on 03/30/19at 01:45; Start 03/30/19 at 01:45; Stop 03/30/19 at 02:44; Status DC Ceftriaxone Sodium (Rocephin) 1 gm 1X ONCE IVP Last administered on 03/30/19at 02:45; Start 03/30/19 at 02:45; Stop 03/30/19 at 02:46; Status DC Sodium Chloride 1,000 ml @ 75 mls/hr [id number] IV Last administered on 03/30/19at 18:21; Start 03/30/19 at 03:30; Stop 03/31/19 at 03:29; Status DC Insulin Glargine (Lantus Syringe) 24 unit QHS SQ ; Start 03/30/19 at 21:00 Amlodipine Besylate (Norvasc) 5 mg BID PO Last administered on 03/31/19at 09:30; Start 03/30/19 at 09:00 Aspirin (Ecotrin) 81 mg DAILY PO Last administered on 03/31/19 09:30; Start 03/30/19 at 09:00 Docusate Sodium (Colace) 100 mg PRN BID PRN PO CONSTIPATION; Start 03/30/19 at 08:45 Hydrochlorothiazide (Microzide) 12.5 mg DAILY PO Last administered on 03/31/19at 09:29; Start 03/30/19 at 09:00 Methyldopa (Aldomet) 250 mg BID PO Last administered on 03/31/19at 09:31; Start 03/30/19 at 09:00 Lisinopril (Prinivil) 40 mg BID PO Last administered on 03/31/19 09:29; Start 03/30/19 at 09:00 Atorvastatin Calcium (Lipitor) 80 mg QHS PO Last administered on 03/30/19at 21:39; Start 03/30/19 at 21:00 Non-Formulary Medication ([Hydrocodone/ Acetaminophen] ) 1 tab PRN Q6HRS PRN PO PAIN; Start 03/30/19 at 08:45; Status UNV Insulin Human Lispro (HumaLOG) 0-7 UNITS TIDACHC SQ Last administered on 03/30/19 17:25; Start 03/30/19 at 11:30 Dextrose (Dextrose 50%-Water Syringe) 12.5 gm PRN Q15MIN PRN IV SEE COMMENTS; Start 03/30/19 at 08:45 Ceftriaxone Sodium (Rocephin) 1 gm Q24H IVP Last administered on 03/31/19 09:30; Start 03/30/19 at 10:00 Tamsulosin HCl (Flomax) 0.4 mg DAILY PO Last administered on 03/31/19 09:29; Start 03/30/19 at 10:30 Enoxaparin Sodium (Lovenox 40mg Syringe) 40 mg Q24H SQ Last administered on 03/30/19 12:05; Start 03/30/19 at 11:00 Lactobacillus Rhamnosus (Culturelle) 1 cap BID PO Last administered on 03/31/19 09:30; Start 03/30/19 at 21:00 Haloperidol Lactate (Haldol Inj) 0.5 mg PRN Q8HRS PRN IVP AGITATION Last administered on 03/31/19 02:43; Start 03/31/19 at 00:00 Hydromorphone HCl (Dilaudid) 0.5 mg PRN Q4HRS PRN IVP PAIN Last administered on 03/31/19 00:35; Start 03/31/19 at 00:00 Active Scripts Active [Hydrocodone/Acetaminophen] 1 TAB Tablet 2 Tab PO PRN Q6HRS PRN [Hydrocodone/Acetaminophen] 1 TAB Tablet 1 Tab PO PRN Q6HRS PRN Colace (Docusate Sodium) 100 Mg Capsule 100 Mg PO BID PRN Reported Hydrochlorothiazide Capsule (Hydrochlorothiazide) 12.5 Mg Capsule 12.5 Mg PO DAILY last dose this am next dose tomorrow am Crestor (Rosuvastatin Calcium) 40 Mg Tablet 1 Tab PO HS last dose last evening next dose this evening Quinapril Hcl 40 Mg Tablet 1 Tab PO BID last dose this am next dose this evening Methyldopa 250 Mg Tablet 1 Tab PO BID last dose this am next dose this evening Metformin Hcl 1,000 Mg Tablet 1 Tab PO BID last dose this am nest dose this evening with supper Amlodipine Besylate 5 Mg Tablet 1 Tab PO BID last dose this am next dose this evening Aspir 81 (Aspirin) 81 Mg Tablet. 1 Tab PO DAILY last dose this am next dose tomorrow morning Vitals/I & O Vital Sign - Last 24 Hours 03/30/19 03/30/19 03/30/19 03/30/19 14:49 19:00 21:38 21:39 Temp 98.1 98.3 98.1 98.3 Pulse 75 77 77 77 Resp 18 20 B/P (MAP) 130/56 (80) 128/69 (88) 128/69 128/69 Pulse Ox 95 97 O2 Delivery Room Air Room Air 03/30/19 03/30/19 03/31/19 03/31/19 21:39 23:02 00:35 01:32 Temp 98.8 98.8 Pulse 77 67 Resp 20 16 B/P (MAP) 128/69 126/62 (83) Pulse Ox 96 96 96 O2 Delivery Room Air Room Air Room Air 03/31/19 03/31/19 03/31/19 03/31/19 03:18 08:20 09:29 09:30 Temp 98.4 98.3 98.4 98.3 Pulse 86 74 86 86 Resp 20 20 B/P (MAP) 137/51 (79) 142/60 (87) 137/51 137/51 Pulse Ox 94 94 O2 Delivery Room Air Room Air 03/31/19 09:31 Pulse 86 B/P (MAP) 137/51 Intake and Output 03/30/19 03/30/19 03/31/19 14:59 22:59 06:59 Intake Total 150 ml 400 ml Output Total 400 ml 500 ml Balance -250 ml -100 ml CORDELIA DENNY MD Mar 31, 2019 11:12
[2019-03-31 11:43] LABS: CALCIUM 8.5 mg/dL (8.5-10.1); CREATININE 1.2 mg/dL (0.7-1.3); POTASSIUM 3.9 mmol/L (3.5-5.1)
[2019-03-31] MEDS: ENOXAPARIN 40 MG/0.4 ML SYRINGE. SQ SCH (12:24)
[2019-03-31 15:05] VITALS: BP 137/58
[2019-03-31 19:00] VITALS: BP 125/59
[2019-03-31] MEDS: ATORVASTATIN CALCIUM 40 MG TABLET. PO SCH (21:45)
[2019-03-31] MEDS: INSULIN GLARGINE SYRINGE. SQ SCH (21:54)
[2019-03-31 23:01] VITALS: BP 123/66
[2019-04-01 03:10] VITALS: BP 139/63
[2019-04-01 07:00] VITALS: BP 136/86
[2019-04-01] MEDS: INSULIN LISPRO 300 UNITS/3 ML VIAL. SQ SCH ×4 (07:30→21:27)
[2019-04-01] MEDS: METHYLDOPA 250 MG TABLET PO SCH ×2 (09:00→21:22)
[2019-04-01] MEDS: TAMSULOSIN 0.4 MG CAP.ER.24H. PO SCH (09:09)
[2019-04-01] MEDS: hydroCHLOROthiazide 12.5 MG CAPSULE PO SCH (09:09)
[2019-04-01] MEDS: amLODIPine BESYLATE 5 MG TABLET PO SCH ×2 (09:10→21:26)
[2019-04-01] MEDS: LISINOPRIL 20 MG TABLET PO SCH ×2 (09:10→21:23)
[2019-04-01] MEDS: ASPIRIN ENTERIC COATED 81 MG TABLET.DR. PO SCH (09:10)
[2019-04-01] MEDS: LACTOBACILLUS RHAMNOSUS GG 1 CAPSULE. PO SCH ×2 (09:10→21:22)
--- NOTE | 2019-04-01 09:14 | PDOC2 ---
UROLOGY CONSULT Date of Consult Date of Consult DATE: 04/01/19 TIME: 09:09 Identification/Chief Complaint Chief Complaint urinary retention Source Source: Caregiver (), Chart review, Patient History of Present Illness Reason for Visit: 83yo male with PMH of DMII, HTN, TIA presented to ER for weakness and fever UA abnormal, Ucx mixed charlie Cr 1.6 on admission; 1.2 on 03/31 Renal ultrasound - no hydronephrosis, mildly enlarged prostate, bladder distended C/o urinary frequency at baseline, difficulty urinating. Takes flomax at home No prostate surgeries, no frequent UTIs No abdominal pain, hematuria, dysuria Past Medical History Cardiovascular: HTN, Hyperlipidemia Pulmonary: No pertinent hx CENTRAL NERVOUS SYSTEM: TIA GI: No pertinent hx Heme/Onc: No pertinent hx Hepatobiliary: No pertinent hx Psych: No pertinent hx Rheumatologic: No pertinent hx Infectious disease: No pertinent hx Renal/: No pertinent hx Endocrine: Diabetes Dermatology: No pertinent hx Past Surgical History Past Surgical History: Total knee replacement, No pertinent history (Lumbar laminectomy. Carotid endarterectomy) Family History Family History: Cancer (Pancreatic in brother), Hypertension (Father) Social History No ALCOHOL: none Drugs: None Current Medications Current Medications Current Medications Medications (Trade) Dose Ordered Sig/Genesis Start Time Stop Time Status Last Admin Dose Admin Acetaminophen (Tylenol) 1,000 mg 1X ONCE 03/30/19 01:45 03/30/19 01:47 DC 03/30/19 01:45 1,000 MG Amlodipine Besylate (Norvasc) 5 mg BID 03/30/19 09:00 04/01/19 09:10 5 MG Aspirin (Ecotrin) 81 mg DAILY 03/30/19 09:00 04/01/19 09:10 81 MG Atorvastatin Calcium (Lipitor) 80 mg QHS 03/30/19 21:00 03/31/19 21:45 80 MG Ceftriaxone Sodium (Rocephin) 1 gm Q24H 03/30/19 10:00 03/31/19 09:30 1 GM Dextrose (Dextrose 50%-Water Syringe) 12.5 gm PRN Q15MIN PRN 03/30/19 08:45 Docusate Sodium (Colace) 100 mg PRN BID PRN 03/30/19 08:45 Enoxaparin Sodium (Lovenox 40mg Syringe) 40 mg Q24H 03/30/19 11:00 03/31/19 12:24 40 MG Haloperidol Lactate (Haldol Inj) 0.5 mg PRN Q8HRS PRN 03/31/19 00:00 03/31/19 02:43 0.5 MG Hydrochlorothiazide (Microzide) 12.5 mg DAILY 03/30/19 09:00 04/01/19 09:09 12.5 MG Hydromorphone HCl (Dilaudid) 0.5 mg PRN Q4HRS PRN 03/31/19 00:00 03/31/19 00:35 0.5 MG Insulin Glargine (Lantus Syringe) 24 unit QHS 03/30/19 21:00 03/31/19 21:54 24 UNIT Insulin Human Lispro (HumaLOG) 0-7 UNITS TIDACHC 03/30/19 11:30 03/31/19 21:53 3 UNITS Lactobacillus Rhamnosus (Culturelle) 1 cap BID 03/30/19 21:00 04/01/19 09:10 1 CAP Lisinopril (Prinivil) 40 mg BID 03/30/19 09:00 04/01/19 09:10 40 MG Methyldopa (Aldomet) 250 mg BID 03/30/19 09:00 03/31/19 21:45 250 MG Non-Formulary Medication ([Hydrocodone/ Acetaminophen] ) 1 tab PRN Q6HRS PRN 03/30/19 08:45 UNV Sodium Chloride 1,000 ml @ 75 mls/hr [id number] 03/30/19 03:30 03/31/19 03:29 DC 03/30/19 18:21 75 MLS/HR Tamsulosin HCl (Flomax) 0.4 mg DAILY 03/30/19 10:30 04/01/19 09:09 0.4 MG Allergies Allergies: Coded Allergies: No Known Drug Allergies (Unverified , 02/25/14) ROS Review Of Systems: CONSTITUTIONAL: No fever or chills EYES: No recent changes SKIN: No rash or itching CARDIOVASCULAR: No chest pain, syncope, palpitations, or edema RESPIRATORY: No SOB or cough GASTROINTESTINAL: No nausea, vomiting or abdominal pain NEUROLOGICAL: No headaches or weakness ENDOCRINE: No cold or heat intolerance GENITOURINARY: As per HPI MUSCULOSKELETAL: No back pain or joint pain LYMPHATICS: No enlarged lymph nodes PSYCHIATRIC: No anxiety or depression Physical Exam Physical Exam: General: Pleasant, no acute distress, well groomed Eyes: conjunctiva anicteric, eyes full range of motion ENT: moist oral mucosa, normal dentition Neck: Trachea midline, no masses Respiratory: unlabored breathing, not using accessory muscles Cardiovascular: Regular rate and rhythm, no peripheral edema Abdomen: nontender, nondistended, no hepatosplenomegaly, no masses Skin: no rashes or skin lesions on visualized skin Psych: normal mood, affect. Alert and oriented x 3. Unable to perform SHYAM, pt in recliner too weak to stand Vitals VITALS Vital Signs Date Time Temp Pulse Resp B/P (MAP) Pulse Ox O2 Delivery O2 Flow Rate FiO2 04/01/19 07:00 97.8 66 17 136/86 (103) 97 Room Air 97.8 Labs Labs Laboratory Tests Test 03/30/19 12:29 03/30/19 16:50 03/30/19 20:52 03/31/19 08:15 Glucose (Fingerstick) 108 mg/dL (70-99) 158 mg/dL (70-99) 167 mg/dL (70-99) 130 mg/dL (70-99) Test 03/31/19 11:20 03/31/19 12:19 03/31/19 16:56 03/31/19 20:24 Sodium Level 141 mmol/L (136-145) Potassium Level 3.9 mmol/L (3.5-5.1) Chloride Level 105 mmol/L (98-107) Carbon Dioxide Level 28 mmol/L (21-32) Anion Gap 8 (6-14) Blood Urea Nitrogen 19 mg/dL (8-26) Creatinine 1.2 mg/dL (0.7-1.3) Estimated GFR (Cockcroft-Gault) 58.0 Glucose Level 228 mg/dL (70-99) Calcium Level 8.5 mg/dL (8.5-10.1) Glucose (Fingerstick) 211 mg/dL (70-99) 220 mg/dL (70-99) 262 mg/dL (70-99) Test 04/01/19 07:13 Glucose (Fingerstick) 113 mg/dL (70-99) Laboratory Tests Test 03/31/19 11:20 03/31/19 12:19 03/31/19 16:56 03/31/19 20:24 Sodium Level 141 mmol/L (136-145) Potassium Level 3.9 mmol/L (3.5-5.1) Chloride Level 105 mmol/L (98-107) Carbon Dioxide Level 28 mmol/L (21-32) Anion Gap 8 (6-14) Blood Urea Nitrogen 19 mg/dL (8-26) Creatinine 1.2 mg/dL (0.7-1.3) Estimated GFR (Cockcroft-Gault) 58.0 Glucose Level 228 mg/dL (70-99) Calcium Level 8.5 mg/dL (8.5-10.1) Glucose (Fingerstick) 211 mg/dL (70-99) 220 mg/dL (70-99) 262 mg/dL (70-99) Test 04/01/19 07:13 Glucose (Fingerstick) 113 mg/dL (70-99) Images Images REECE FINDINGS: The right kidney measures 12.8 x 6.1 x 5.3 cm without hydronephrosis. Left kidney measures 11.8 x 5.0 x 6.8 cm without hydronephrosis. Prostate is mildly enlarged measuring 5.7 cm in longest dimension. Post void urinary bladder volume of 248 cc. IMPRESSION: 1. No hydronephrosis. 2. Mild prostatomegaly. Correlate with physical exam and PSA. 3. Significant residual post void bladder volume. Assessment/Plan Assessment/Plan Urinary retention; BPH UTI tx per primary, likely 2/2 incomplete bladder emptying Creatinine elevated on admission, trending down now PVR 400mL this AM - pt prefers straight cath over indwelling prajapati. Continue bladder scan protocol and straight cath PRN Continue flomax, recommend f/u outpatient in 2-3 weeks BABAK THOMPSON Apr 01, 2019 09:14
--- NOTE | 2019-04-01 10:26 | NUR ---
ASSUMED CARE AT 10 AM. STRAIGHT CATH AFTER VOIDING 200CC AND BLADDER SCAN DONE SHOWING 400 CC YELLOW URINE. STRAIGHT CATH DONE WITH RETURN OF 400CC YELLOW URINE; TOLERATED WELL.
[2019-04-01 11:00] VITALS: BP 121/56
[2019-04-01] MEDS: cefTRIAXone IV Push 1 GM VIAL. IVP SCH (11:18)
[2019-04-01] MEDS: ENOXAPARIN 40 MG/0.4 ML SYRINGE. SQ SCH (11:19)
--- NOTE | 2019-04-01 11:20 | PDOC ---
PROGRESS NOTES History of Present Illness History of Present Illness Images Images CXR - A frontal view of the chest is obtained. The projection is lordotic. There are no confluent infiltrates. There is no pneumothorax or pleural effusion. The heart is not enlarged. VTE Prophylaxis Ordered VTE Prophylaxis Devices: Yes VTE Pharmacological Prophylaxi: Yes Assessment/Plan Assessment/Plan Dysuria - with history of urinary retention, /// empiric rocephin. Will get abdominal US to assess bladder and kidneys. Check PSA, f/u culture Unable to walk - likely 2/2 weakness //ENCEPHALOPATHY, METABOLIC Sepsis - Given IVF and empiric rocephin Significant residual post void bladder volume. Acute confusion - with history of MCI per . Likely 2/2 infectious state, will monitor DM - will hold metformin for MAKI. Basal bolus plus insulin MAKI - likely vasomotor nephropathy from poor PO intake HTN - cont meds HLD - cont meds TIAs - will cont statin and ASA FEN - ADA diet PPX - lovenox FULL CODE Dispo - inpatient for sepsis 2/2 UTI in male UROLOGY CONSULT MIDLINE OR PICC 27 MIN PT EXAM, CHART REVIEW, > 50% OF TIME SPENT WITH EXAM, CHART REVIEW, PT CARE COORDINATION Vitals Vitals Vital Signs Date Time Temp Pulse Resp B/P (MAP) Pulse Ox O2 Delivery O2 Flow Rate FiO2 04/01/19 11:00 97.8 67 17 121/56 (77) 97 Room Air 97.8 Physical Exam General: Alert, Cooperative, No acute distress Heart: Regular rate Lungs: Clear Abdomen: Normal bowel sounds, Soft, No hepatosplenomegaly, No masses, Other (Suprapubic tenderness) Extremities: No clubbing, No cyanosis, No edema, Normal pulses, No tenderness/swelling Skin: No rashes, No breakdown, No significant lesion Labs LABS DERED: URINE CULTURE Procedure Result URINE CULTURE Final Final report URINE CULTURE RES 1 Final Comment Mixed urogenital charlie 50,000-100,000 colony forming units per mL Performed at: - [facility] [address], [place], [place] [id number] Bedspread Seamer: YOHANNES Solomon MD, Phone: [phone] Laboratory Tests Test 03/31/19 12:19 03/31/19 16:56 03/31/19 20:24 04/01/19 07:13 Glucose (Fingerstick) 211 mg/dL (70-99) 220 mg/dL (70-99) 262 mg/dL (70-99) 113 mg/dL (70-99) Comment Review of Relevant I have reviewed the following items zuri (where applicable) has been applied. Labs Laboratory Tests Test 03/30/19 12:29 03/30/19 16:50 03/30/19 20:52 03/31/19 08:15 Glucose (Fingerstick) 108 mg/dL (70-99) 158 mg/dL (70-99) 167 mg/dL (70-99) 130 mg/dL (70-99) Test 03/31/19 11:20 03/31/19 12:19 03/31/19 16:56 03/31/19 20:24 Sodium Level 141 mmol/L (136-145) Potassium Level 3.9 mmol/L (3.5-5.1) Chloride Level 105 mmol/L (98-107) Carbon Dioxide Level 28 mmol/L (21-32) Anion Gap 8 (6-14) Blood Urea Nitrogen 19 mg/dL (8-26) Creatinine 1.2 mg/dL (0.7-1.3) Estimated GFR (Cockcroft-Gault) 58.0 Glucose Level 228 mg/dL (70-99) Calcium Level 8.5 mg/dL (8.5-10.1) Glucose (Fingerstick) 211 mg/dL (70-99) 220 mg/dL (70-99) 262 mg/dL (70-99) Test 04/01/19 07:13 Glucose (Fingerstick) 113 mg/dL (70-99) Laboratory Tests Test 03/31/19 12:19 03/31/19 16:56 03/31/19 20:24 04/01/19 07:13 Glucose (Fingerstick) 211 mg/dL (70-99) 220 mg/dL (70-99) 262 mg/dL (70-99) 113 mg/dL (70-99) Microbiology 03/30/19 Urine Culture - Final, Complete 03/30/19 Urine Culture Result 1 (GRETCHEN) - Final, Complete 03/30/19 Blood Culture - Preliminary, Resulted NO GROWTH AFTER 2 DAYS Medications Current Medications Acetaminophen (Tylenol) 1,000 mg 1X ONCE PO Last administered on 03/30/19at 01:45; Start 03/30/19 at 01:45; Stop 03/30/19 at 01:47; Status DC Sodium Chloride 1,000 ml @ 1,000 mls/hr 1X ONCE IV Last administered on 03/30/19at 01:45; Start 03/30/19 at 01:45; Stop 03/30/19 at 02:44; Status DC Ceftriaxone Sodium (Rocephin) 1 gm 1X ONCE IVP Last administered on 03/30/19at 02:45; Start 03/30/19 at 02:45; Stop 03/30/19 at 02:46; Status DC Sodium Chloride 1,000 ml @ 75 mls/hr [id number] IV Last administered on 03/30/19at 18:21; Start 03/30/19 at 03:30; Stop 03/31/19 at 03:29; Status DC Insulin Glargine (Lantus Syringe) 24 unit QHS SQ Last administered on 03/31/19at 21:54; Start 03/30/19 at 21:00 Amlodipine Besylate (Norvasc) 5 mg BID PO Last administered on 04/01/19 09:10; Start 03/30/19 at 09:00 Aspirin (Ecotrin) 81 mg DAILY PO Last administered on 04/01/19 09:10; Start 03/30/19 at 09:00 Docusate Sodium (Colace) 100 mg PRN BID PRN PO CONSTIPATION; Start 03/30/19 at 08:45 Hydrochlorothiazide (Microzide) 12.5 mg DAILY PO Last administered on 04/01/19 09:09; Start 03/30/19 at 09:00 Methyldopa (Aldomet) 250 mg BID PO Last administered on 03/31/19 21:45; Start 03/30/19 at 09:00 Lisinopril (Prinivil) 40 mg BID PO Last administered on 04/01/19 09:10; Start 03/30/19 at 09:00 Atorvastatin Calcium (Lipitor) 80 mg QHS PO Last administered on 03/31/19 21:45; Start 03/30/19 at 21:00 Non-Formulary Medication ([Hydrocodone/ Acetaminophen] ) 1 tab PRN Q6HRS PRN PO PAIN; Start 03/30/19 at 08:45; Status UNV Insulin Human Lispro (HumaLOG) 0-7 UNITS TIDACHC SQ Last administered on 03/31/19 21:53; Start 03/30/19 at 11:30 Dextrose (Dextrose 50%-Water Syringe) 12.5 gm PRN Q15MIN PRN IV SEE COMMENTS; Start 03/30/19 at 08:45 Ceftriaxone Sodium (Rocephin) 1 gm Q24H IVP Last administered on 04/01/19 11:18; Start 03/30/19 at 10:00 Tamsulosin HCl (Flomax) 0.4 mg DAILY PO Last administered on 04/01/19 09:09; Start 03/30/19 at 10:30 Enoxaparin Sodium (Lovenox 40mg Syringe) 40 mg Q24H SQ Last administered on 04/01/19 11:19; Start 03/30/19 at 11:00 Lactobacillus Rhamnosus (Culturelle) 1 cap BID PO Last administered on 04/01/19 09:10; Start 03/30/19 at 21:00 Haloperidol Lactate (Haldol Inj) 0.5 mg PRN Q8HRS PRN IVP AGITATION Last administered on 03/31/19at 02:43; Start 03/31/19 at 00:00 Hydromorphone HCl (Dilaudid) 0.5 mg PRN Q4HRS PRN IVP PAIN Last administered on 03/31/19at 00:35; Start 03/31/19 at 00:00 Active Scripts Active [Hydrocodone/Acetaminophen] 1 TAB Tablet 2 Tab PO PRN Q6HRS PRN [Hydrocodone/Acetaminophen] 1 TAB Tablet 1 Tab PO PRN Q6HRS PRN Colace (Docusate Sodium) 100 Mg Capsule 100 Mg PO BID PRN Reported Hydrochlorothiazide Capsule (Hydrochlorothiazide) 12.5 Mg Capsule 12.5 Mg PO DAILY last dose this am next dose tomorrow am Crestor (Rosuvastatin Calcium) 40 Mg Tablet 1 Tab PO HS last dose last evening next dose this evening Quinapril Hcl 40 Mg Tablet 1 Tab PO BID last dose this am next dose this evening Methyldopa 250 Mg Tablet 1 Tab PO BID last dose this am next dose this evening Metformin Hcl 1,000 Mg Tablet 1 Tab PO BID last dose this am nest dose this evening with supper Amlodipine Besylate 5 Mg Tablet 1 Tab PO BID last dose this am next dose this evening Aspir 81 (Aspirin) 81 Mg Tablet.dr 1 Tab PO DAILY last dose this am next dose tomorrow morning Vitals/I & O Vital Sign - Last 24 Hours 03/31/19 03/31/19 03/31/19 03/31/19 15:05 19:00 21:45 21:46 Temp 97.9 98.4 97.9 98.4 Pulse 80 66 66 66 Resp 24 20 B/P (MAP) 137/58 (84) 125/59 (81) 125/59 125/59 Pulse Ox 95 97 O2 Delivery Room Air Room Air 03/31/19 03/31/19 04/01/19 04/01/19 21:48 23:01 03:10 07:00 Temp 97.6 98.3 97.8 97.6 98.3 97.8 Pulse 66 77 75 66 Resp 20 20 17 B/P (MAP) 125/59 123/66 (85) 139/63 (88) 136/86 (103) Pulse Ox 97 96 97 O2 Delivery Room Air Room Air Room Air 04/01/19 04/01/19 04/01/19 04/01/19 08:00 09:10 09:10 11:00 Temp 97.8 97.8 Pulse 66 66 67 Resp 17 B/P (MAP) 136/86 136/86 121/56 (77) Pulse Ox 97 O2 Delivery Room Air Room Air Intake and Output 03/31/19 03/31/19 04/01/19 15:00 23:00 07:00 Intake Total 220 ml 520 ml Balance 220 ml 520 ml CORDELIA DENNY MD Apr 01, 2019 11:20
--- NOTE | 2019-04-01 11:27 | PDOC2 ---
CONSULT Date of Consult Date of Consult DATE: 04/01/19 TIME: 11:24 History of Present Illness Reason for Visit: THIS IS AN 83 YR OLD WITH WEAKNESS. COULD NOT GET UP OUT OF CHAIR. ALSO HAD A TEMP. NOW NOTED TO HAVE CONFUSION AND AN UTI. ALSO NOTED TO HAVE A CR OF 1.6. IMAGING C/W URINARY RETENTION AND PT IS SEEN BY UROLOGY. BLADDER HAS BEEN DECOMPRESSED AND CR NOW WNL. PT ON ANTIBIOTICS NOW. NO CKD NOTED Past Medical History Cardiovascular: HTN, Hyperlipidemia Pulmonary: No pertinent hx CENTRAL NERVOUS SYSTEM: TIA GI: No pertinent hx Heme/Onc: No pertinent hx Hepatobiliary: No pertinent hx Psych: No pertinent hx Rheumatologic: No pertinent hx Infectious disease: No pertinent hx Renal/: No pertinent hx Endocrine: Diabetes Dermatology: No pertinent hx Past Surgical History Past Surgical History: Total knee replacement, No pertinent history (Lumbar laminectomy. Carotid endarterectomy) Family History Family History: Cancer (Pancreatic in brother), Hypertension (Father) Social History No ALCOHOL: none Drugs: None Current Medications Current Medications Current Medications Acetaminophen (Tylenol) 1,000 mg 1X ONCE PO Last administered on 03/30/19at 01:45; Start 03/30/19 at 01:45; Stop 03/30/19 at 01:47; Status DC Sodium Chloride 1,000 ml @ 1,000 mls/hr 1X ONCE IV Last administered on 03/30/19at 01:45; Start 03/30/19 at 01:45; Stop 03/30/19 at 02:44; Status DC Ceftriaxone Sodium (Rocephin) 1 gm 1X ONCE IVP Last administered on 03/30/19at 02:45; Start 03/30/19 at 02:45; Stop 03/30/19 at 02:46; Status DC Sodium Chloride 1,000 ml @ 75 mls/hr [id number] IV Last administered on 03/30/19at 18:21; Start 03/30/19 at 03:30; Stop 03/31/19 at 03:29; Status DC Insulin Glargine (Lantus Syringe) 24 unit QHS SQ Last administered on 03/31/19at 21:54; Start 03/30/19 at 21:00 Amlodipine Besylate (Norvasc) 5 mg BID PO Last administered on 04/01/19at 09:10; Start 03/30/19 at 09:00 Aspirin (Ecotrin) 81 mg DAILY PO Last administered on 04/01/19 09:10; Start 03/30/19 at 09:00 Docusate Sodium (Colace) 100 mg PRN BID PRN PO CONSTIPATION; Start 03/30/19 at 08:45 Hydrochlorothiazide (Microzide) 12.5 mg DAILY PO Last administered on 04/01/19 09:09; Start 03/30/19 at 09:00 Methyldopa (Aldomet) 250 mg BID PO Last administered on 03/31/19 21:45; Start 03/30/19 at 09:00 Lisinopril (Prinivil) 40 mg BID PO Last administered on 04/01/19 09:10; Start 03/30/19 at 09:00 Atorvastatin Calcium (Lipitor) 80 mg QHS PO Last administered on 03/31/19 21:45; Start 03/30/19 at 21:00 Non-Formulary Medication ([Hydrocodone/ Acetaminophen] ) 1 tab PRN Q6HRS PRN PO PAIN; Start 03/30/19 at 08:45; Status UNV Insulin Human Lispro (HumaLOG) 0-7 UNITS TIDACHC SQ Last administered on 03/31/19 21:53; Start 03/30/19 at 11:30 Dextrose (Dextrose 50%-Water Syringe) 12.5 gm PRN Q15MIN PRN IV SEE COMMENTS; Start 03/30/19 at 08:45 Ceftriaxone Sodium (Rocephin) 1 gm Q24H IVP Last administered on 04/01/19 11:18; Start 03/30/19 at 10:00 Tamsulosin HCl (Flomax) 0.4 mg DAILY PO Last administered on 04/01/19 09:09; Start 03/30/19 at 10:30 Enoxaparin Sodium (Lovenox 40mg Syringe) 40 mg Q24H SQ Last administered on 04/01/19 11:19; Start 03/30/19 at 11:00 Lactobacillus Rhamnosus (Culturelle) 1 cap BID PO Last administered on 04/01/19 09:10; Start 03/30/19 at 21:00 Haloperidol Lactate (Haldol Inj) 0.5 mg PRN Q8HRS PRN IVP AGITATION Last administered on 10/6/19at 02:43; Start 03/31/19 at 00:00 Hydromorphone HCl (Dilaudid) 0.5 mg PRN Q4HRS PRN IVP PAIN Last administered on 03/31/19at 00:35; Start 03/31/19 at 00:00 Active Scripts Active [Hydrocodone/Acetaminophen] 1 TAB Tablet 2 Tab PO PRN Q6HRS PRN [Hydrocodone/Acetaminophen] 1 TAB Tablet 1 Tab PO PRN Q6HRS PRN Colace (Docusate Sodium) 100 Mg Capsule 100 Mg PO BID PRN Reported Hydrochlorothiazide Capsule (Hydrochlorothiazide) 12.5 Mg Capsule 12.5 Mg PO DAILY last dose this am next dose tomorrow am Crestor (Rosuvastatin Calcium) 40 Mg Tablet 1 Tab PO HS last dose last evening next dose this evening Quinapril Hcl 40 Mg Tablet 1 Tab PO BID last dose this am next dose this evening Methyldopa 250 Mg Tablet 1 Tab PO BID last dose this am next dose this evening Metformin Hcl 1,000 Mg Tablet 1 Tab PO BID last dose this am nest dose this evening with supper Amlodipine Besylate 5 Mg Tablet 1 Tab PO BID last dose this am next dose this evening Aspir 81 (Aspirin) 81 Mg Tablet.dr 1 Tab PO DAILY last dose this am next dose tomorrow morning Allergies Allergies: Coded Allergies: No Known Drug Allergies (Unverified , 02/25/14) ROS Review of System UNABLE TO OBTAIN Physical Exam General: Alert, Cooperative, No acute distress HEENT: Atraumatic, PERRLA Lungs: Clear to auscultation Heart: Regular rate Abdomen: Normal bowel sounds, Soft, No tenderness Extremities: No clubbing Skin: No breakdown Neuro: Other (CONFUSED) Psych/Mental Status: Other (CONFUSED) MUSCULOSKELETAL: No deformity, No swelling Vitals VITALS Vital Signs Date Time Temp Pulse Resp B/P (MAP) Pulse Ox O2 Delivery O2 Flow Rate FiO2 04/01/19 11:00 97.8 67 17 121/56 (77) 97 Room Air 97.8 Labs Labs Laboratory Tests Test 03/30/19 12:29 03/30/19 16:50 03/30/19 20:52 03/31/19 08:15 Glucose (Fingerstick) 108 mg/dL (70-99) 158 mg/dL (70-99) 167 mg/dL (70-99) 130 mg/dL (70-99) Test 03/31/19 11:20 03/31/19 12:19 03/31/19 16:56 03/31/19 20:24 Sodium Level 141 mmol/L (136-145) Potassium Level 3.9 mmol/L (3.5-5.1) Chloride Level 105 mmol/L (98-107) Carbon Dioxide Level 28 mmol/L (21-32) Anion Gap 8 (6-14) Blood Urea Nitrogen 19 mg/dL (8-26) Creatinine 1.2 mg/dL (0.7-1.3) Estimated GFR (Cockcroft-Gault) 58.0 Glucose Level 228 mg/dL (70-99) Calcium Level 8.5 mg/dL (8.5-10.1) Glucose (Fingerstick) 211 mg/dL (70-99) 220 mg/dL (70-99) 262 mg/dL (70-99) Test 04/01/19 07:13 Glucose (Fingerstick) 113 mg/dL (70-99) Laboratory Tests Test 03/31/19 12:19 03/31/19 16:56 03/31/19 20:24 04/01/19 07:13 Glucose (Fingerstick) 211 mg/dL (70-99) 220 mg/dL (70-99) 262 mg/dL (70-99) 113 mg/dL (70-99) Assessment/Plan Assessment/Plan IMP MAKI-RESOLVED URINARY RETENTION URINARY TRACT INFECTION MET ENCEPHALOPATHY DUE TO ABOVE GENERALIZED DECONDITIONING PLAN ANTIBIOTICS BLADDER DECOMPRESSED UROLOGY FOLLOWING WILL SIGN OFF PLEASE CALL IF NEEDED HANNAH SULLIVAN MD Apr 01, 2019 11:27
--- NOTE | 2019-04-01 14:32 | NUR ---
SW consulted for dc planning. Chart reviewed. Pt lives at home with spouse. PT/OT recommends home health. SW will arrange HH upon dc. Will continue to follow.
[2019-04-01 15:00] VITALS: BP 134/70
[2019-04-01 19:00] VITALS: BP 130/64
[2019-04-01] MEDS: ATORVASTATIN CALCIUM 40 MG TABLET. PO SCH (21:22)
[2019-04-01] MEDS: INSULIN GLARGINE SYRINGE. SQ SCH (21:24)
[2019-04-01 22:44] VITALS: BP 142/62
[2019-04-02 07:00] VITALS: BP 120/60
[2019-04-02] MEDS: INSULIN LISPRO 300 UNITS/3 ML VIAL. SQ SCH ×2 (07:30→11:30)
[2019-04-02] MEDS ORDERED: CIPR250T30 PO (08:24)
[2019-04-02] MEDS ORDERED: TAMS0.4C97 PO (08:24)
--- NOTE | 2019-04-02 08:25 | SNU/HH DC ---
DISCHARGE WITH HOME HEALTH DISCHARGE INFORMATION: Discharge Date: Apr 02, 2019 Condition on Discharge: Stable CODE STATUS: Code Status: Full HOME HEALTH: Face to Face: I certify this patient is under my care and that I, or a nurse practitioner or physician's pharmacist assistant working with me, had a face to face encounter that meets the physician face to face encounter requirements with this patient on []. Medical Complications: HTN RN For Eval/Treatment: Yes Physical Therapy For: Evalulation/Treatment Occupational Therapy For: Evaluation/Treatment Home Health Aide For: Self-care REGISTERED NURSE FETAL For: Community Resources Pt Meets Homebound Status: Extreme weakness w/ amb. POST DISCHARGE ORDERS: Activity Instructions for Disc: Bedrest today, Progressive ambulation, Walk in house Weight Bearing Status after Di: No restrictions Bathing Instructions: Shower-keep dressing dry, No Tub Bath until see Dr. RICHARDS AFTER DISCHARGE: Regular CHECKS AFTER DISCHARGE: Checks after discharge: Check blood press - daily FOLLOW-UP: PCP to follow Home Health: dd up urology 2-3 weeks regarding urinary retention CERTIFICATION STATEMENT: Certification Statement: Certification Statement: Based on the above finding, I certify that this patient is confined to the home and needs intermittent long-term care, physical therapy and/or speech therapy, or continues to need occupational therapy.~ This patient is under my care, and I have initiated the establishment of the plan of care.~ This patient will be followed by myself or a community physician who will periodically review the plan of care. Home Meds Active Scripts Ciprofloxacin Hcl (CIPRO) 250 Mg Tablet, 1 TAB PO BID for uti, #14 TAB Prov:FRANCIA GIVENS MD 04/02/19 Tamsulosin Hcl (FLOMAX) 0.4 Mg Cap.er.24h, 0.4 MG PO DAILY for retention, #60 CAP.SR Prov:FRANCIA GIVENS MD 04/02/19 [Hydrocodone/Acetaminophen] 1 TAB TABLET No Conflict Check, 2 TAB PO PRN Q6HRS PRN for PAIN Prov:NERIS BUTTERFIELD APRN 02/26/14 [Hydrocodone/Acetaminophen] 1 TAB TABLET No Conflict Check, 1 TAB PO PRN Q6HRS PRN for PAIN Prov:NERIS BUTTERFIELD APRN 02/26/14 Docusate Sodium (COLACE) 100 Mg Capsule, 100 MG PO BID PRN for CONSTIPATION, #60 Prov:NERIS BUTTERFIELD MANAGER GAS 02/26/14 Reported Medications Hydrochlorothiazide (HYDROCHLOROTHIAZIDE CAPSULE ) 12.5 Mg Capsule, 12.5 MG PO DAILY for DIURETIC, CAP 0 Refills last dose this am next dose tomorrow am 02/20/14 Rosuvastatin Calcium (CRESTOR) 40 Mg Tablet, 1 TAB PO HS for cholesterol, #30 TAB 5 Refills last dose last evening next dose this evening 02/20/14 Quinapril Hcl (QUINAPRIL HCL) 40 Mg Tablet, 1 TAB PO BID for blood pressure, #30 TAB 5 Refills last dose this am next dose this evening 02/20/14 Methyldopa (METHYLDOPA) 250 Mg Tablet, 1 TAB PO BID, #60 TAB 3 Refills last dose this am next dose this evening 02/20/14 Metformin Hcl (METFORMIN HCL) 1,000 Mg Tablet, 1 TAB PO BID for blood sugar, #60 TAB 5 Refills last dose this am nest dose this evening with supper 02/20/14 Amlodipine Besylate (AMLODIPINE BESYLATE) 5 Mg Tablet, 1 TAB PO BID for blood pressure, #30 TAB 5 Refills last dose this am next dose this evening 02/20/14 Aspirin (ASPIR 81) 81 Mg Tablet., 1 TAB PO DAILY for blood thinner, #30 TAB 5 Refills last dose this am next dose tomorrow morning 02/20/14 FRANCIA GIVENS MD Apr 02, 2019 08:25
[2019-04-02] MEDS: LACTOBACILLUS RHAMNOSUS GG 1 CAPSULE. PO SCH (08:36)
[2019-04-02] MEDS: METHYLDOPA 250 MG TABLET PO SCH (08:36)
[2019-04-02] MEDS: hydroCHLOROthiazide 12.5 MG CAPSULE PO SCH (08:36)
[2019-04-02] MEDS: amLODIPine BESYLATE 5 MG TABLET PO SCH (08:36)
[2019-04-02] MEDS: ASPIRIN ENTERIC COATED 81 MG TABLET.DR. PO SCH (08:36)
[2019-04-02] MEDS: LISINOPRIL 20 MG TABLET PO SCH (08:37)
[2019-04-02] MEDS: TAMSULOSIN 0.4 MG CAP.ER.24H. PO SCH (08:37)
[2019-04-02] MEDS: cefTRIAXone IV Push 1 GM VIAL. IVP SCH (10:36)
[2019-04-02 10:45] VITALS: BP 122/55
--- NOTE | 2019-04-02 10:51 | PDOC3 ---
Discharge Summary Visit Information Date of Admission: Mar 30, 2019 Date of Discharge: Apr 02, 2019 Admitting Diagnosis Comment: Urinary retention NO UTI Brief Hospital Course Allergies Allergies Coded Allergies Type Severity Reaction Last Updated Verified No Known Drug Allergies 02/25/14 No Vital Signs Vital Signs Date Time Temp Pulse Resp B/P (MAP) Pulse Ox O2 Delivery O2 Flow Rate FiO2 04/02/19 10:45 97.8 60 19 122/55 (77) 96 Room Air 97.8 Lab Results Laboratory Tests Test 03/31/19 11:20 03/31/19 12:19 03/31/19 16:56 03/31/19 20:24 Sodium Level 141 mmol/L (136-145) Potassium Level 3.9 mmol/L (3.5-5.1) Chloride Level 105 mmol/L (98-107) Carbon Dioxide Level 28 mmol/L (21-32) Anion Gap 8 (6-14) Blood Urea Nitrogen 19 mg/dL (8-26) Creatinine 1.2 mg/dL (0.7-1.3) Estimated GFR (Cockcroft-Gault) 58.0 Glucose Level 228 mg/dL (70-99) Calcium Level 8.5 mg/dL (8.5-10.1) Glucose (Fingerstick) 211 mg/dL (70-99) 220 mg/dL (70-99) 262 mg/dL (70-99) Test 04/01/19 07:13 04/01/19 11:26 04/01/19 16:59 04/01/19 20:31 Glucose (Fingerstick) 113 mg/dL (70-99) 186 mg/dL (70-99) 235 mg/dL (70-99) 220 mg/dL (70-99) Test 04/02/19 07:41 Glucose (Fingerstick) 105 mg/dL (70-99) Laboratory Tests Test 04/01/19 11:26 04/01/19 16:59 04/01/19 20:31 04/02/19 07:41 Glucose (Fingerstick) 186 mg/dL (70-99) 235 mg/dL (70-99) 220 mg/dL (70-99) 105 mg/dL (70-99) Brief Hospital Course Mr. Mccallum is a 83 old who came with urinary retention of 400cc needed to be straight cathd 2x. Consulted urology, Initially did not want prajapati for the but after discussion was agreeable, They live together, they are both elderly so needed clear instruction on prajapati care, ff up urology 2-3 weeks - will go home with prajapati (leg bag was too complicated for the to change during the nights),. Urine cx actually neg but he did come with UTI on UA. I did prescribe low dose cipro, for home, cont home flomax Dw and RN at bedside HH on dc to help with prajapati care ff up urology 2-3 weeks Discharge Information Condition at Discharge: Improved, Stable Disposition/Orders: D/C to Home w/ HH Scheduled Amlodipine Besylate (Amlodipine Besylate) 5 Mg Tablet, 1 TAB PO BID for blood pressure, #30 Ref 5 (Reported) last dose this am next dose this evening Entered as Reported by: JOSE PERDUE on 02/20/14 1448 Last Action: Continued on 03/30/19844 by RAMAN ORELLANA MD Aspirin (Aspir 81) 81 Mg Tablet.dr, 1 TAB PO DAILY for blood thinner, #30 Ref 5 (Reported) last dose this am next dose tomorrow morning Entered as Reported by: JOSE PERDUE on 02/20/14 1448 Last Action: Continued on 03/30/19844 by RAMAN ORELLANA MD Ciprofloxacin Hcl (Cipro) 250 Mg Tablet, 1 TAB PO BID for uti, #14 Prescribed by: FRANCIA GIVENS on 04/02/19 0824 Hydrochlorothiazide (Hydrochlorothiazide Capsule ) 12.5 Mg Capsule, 12.5 MG PO DAILY for DIURETIC, Ref 0 (Reported) last dose this am next dose tomorrow am Entered as Reported by: DAYRON HERNANDEZ on 02/20/14 1501 Last Action: Continued on 03/30/19844 by RAMAN ORELLANA MD Metformin Hcl (Metformin Hcl) 1,000 Mg Tablet, 1 TAB PO BID for blood sugar, #60 Ref 5 (Reported) last dose this am nest dose this evening with supper Entered as Reported by: JOSE PERDUE on 02/20/14 1450 Methyldopa (Methyldopa) 250 Mg Tablet, 1 TAB PO BID, #60 Ref 3 (Reported) last dose this am next dose this evening Entered as Reported by: JOSE PERDUE on 02/20/141450 Last Action: Continued on 03/30/19844 by RAMAN ORELLANA MD Quinapril Hcl (Quinapril Hcl) 40 Mg Tablet, 1 TAB PO BID for blood pressure, #30 Ref 5 (Reported) last dose this am next dose this evening Entered as Reported by: JOSE PERDUE on 02/20/141450 Last Action: Converted on 03/30/19844 by RAMAN ORELLANA MD Rosuvastatin Calcium (Crestor) 40 Mg Tablet, 1 TAB PO HS for cholesterol, #30 Ref 5 (Reported) last dose last evening next dose this evening Entered as Reported by: JOSE PERDUE on 02/20/141451 Last Action: Converted on 03/30/19844 by RAMAN ORELLANA MD Tamsulosin Hcl (Flomax) 0.4 Mg Cap.er.24h, 0.4 MG PO DAILY for retention, #60 Prescribed by: FRANCIA GIVENS on 04/02/19823 Scheduled PRN Docusate Sodium (Colace) 100 Mg Capsule, 100 MG PO BID PRN for CONSTIPATION, #60 Prescribed by: NERIS BUTTERFIELD on 03/22/14705 Last Action: Continued on 03/30/19844 by RAMAN ORELLANA MD [Hydrocodone/Acetaminophen] 1 TAB TABLET, 1 TAB PO PRN Q6HRS PRN for PAIN Prescribed by: NERIS BUTTERFIELD on 03/22/14705 Last Action: Converted on 03/30/19844 by RAMAN ORELLANA MD [Hydrocodone/Acetaminophen] 1 TAB TABLET, 2 TAB PO PRN Q6HRS PRN for PAIN Prescribed by: NERIS BUTTERFIELD on 03/22/14705 FRANCIA GIVENS MD Apr 02, 2019 10:51
[2019-04-02] MEDS: ENOXAPARIN 40 MG/0.4 ML SYRINGE. SQ SCH (11:00)
--- NOTE | 2019-04-02 11:25 | NUR ---
Patient was bladder scanned after voiding, patient had >450mls in bladder, order in place to straight cath patient. Patient was straight cath and immediately had 550mls of urine out. Patient tolerated procedure well. Will let doctor aware. Will continue to monitor patient.
[2019-04-02 15:04] VITALS: BP 128/62
--- NOTE | 2019-04-02 16:08 | NUR ---
Discharge Note: Patient was discharged home with Home Health. Patients IV was discontinued without any complications per this RN. Patient was discharged with prajapati catheter per doctors orders. Patient to follow-up with urology in 2-3 weeks. Patients daughter and at the bedside during discharge education. and daughter were educated on catheter care. All questions and concerns were addressed. Patient and family were given discharge summary/instructions, follow-ups, prescriptions and educational material. Patient was taken down to the main entrance via wheelchair with all personal belongings accompanied by and GLADYS Webb, where daughter was waiting for him to take him home.
--- NOTE | 2019-04-02 16:09 | NUR ---
SW following pt. Spoke with pt and pt's , they had used [facility] in the past. SW discussed [facility] is part of [facility] and they are agreeable to speak with Nurse Navigator from [facility]. Pt's right and choice forms signed by pt and copies placed on chart. Home health will be arranged by Nurse Navigator. Discussed with RN.
== END 2019-04-02 16:18 | disposition home health service (06) | DRG 871 ==
LOC: ER 01:25 → 5 SOUTH 03:23
PROVIDERS: ADMIT Internal Medicine; ATTEND Internal Medicine
DX: A41.9 Sepsis, unspecified organism (principal); G93.41 Metabolic encephalopathy; N39.0 Urinary tract infection, site not specified; N17.9 Acute kidney failure, unspecified; E11.9 Type 2 diabetes mellitus without complications; E78.00 Pure hypercholesterolemia, unspecified; I10 Essential (primary) hypertension; Z86.73 Personal history of transient ischemic attack (TIA), and cerebral infarction without residual deficits; Z96.659 Presence of unspecified artificial knee joint; E78.5 Hyperlipidemia, unspecified; Z82.49 Family history of ischemic heart disease and other diseases of the circulatory system; N40.1 Benign prostatic hyperplasia with lower urinary tract symptoms; R33.8 Other retention of urine; Z79.82 Long term (current) use of aspirin; Z79.84 Long term (current) use of oral hypoglycemic drugs
CPT/HCPCS: 36415; 51798; 71045; 76770; 80048; 80053; 81001; 82962; 83605; 83690; 84145; 84484; 85025; 87040; 87070; 87086; 87804; 87880; 93005; 96361; 96374; G0103; J0696; J1170; J1630; J1650; J1815; J7030; 99285-25; G0378

== ENCOUNTER 2019-05-12 11:19 | Emergency (ER) | payer MEDICARE ==
[~2019-05-12] VITALS: Ht 177.8 cm; Wt 101.2 kg
[~2019-05-12 11:19] MED LIST changes: +CIPR250T30 PO; +TAMS0.4C97 PO
--- NOTE | 2019-05-12 11:41 | PHYS DOC ---
Past Medical History Past Medical History: Diabetes-Type II, High Cholesterol, Hypertension, TIA Past Surgical History: Knee Replacement, Other Additional Past Surgical Histo: BILAT KNEE, 'CAROTID SURGERY', 'BACK SURGERY' Alcohol Use: None Drug Use: None Adult General Chief Complaint Chief Complaint: EARACHE/EAR PAIN HPI HPI Patient is a 83 year old male who presents with whose child day care teacher watches her today and she gave him a Q-tip to clean out his ears. After this patient was unable to hear out of bilateral ears. Caregiver states that the Q-tip stick, whole knee did have large amount of wax. Caregiver denies the patient having fevers, complaining of pain or recent illness. Review of Systems Review of Systems HENT: Denies nasal congestion or sore throat. Hearing loss bilaterally, wax impaction. [] All other systems were reviewed and found to be within normal limits, except as documented in this note. Allergies Allergies Allergies Coded Allergies Type Severity Reaction Last Updated Verified No Known Drug Allergies 02/25/14 No Physical Exam Physical Exam Constitutional: Well developed, well nourished, no acute distress, non-toxic appearance. [] HENT: Normocephalic, atraumatic, bilateral external ears normal, oropharynx moist, no oral exudates, nose normal. Bilateral ears with wax impaction. [] Eyes: PERRLA, EOMI, conjunctiva normal, no discharge. [] Neck: Normal range of motion, no tenderness, supple, no stridor. [] Cardiovascular:Heart rate regular rhythm, no murmur [] Lungs & Thorax: Bilateral breath sounds clear to auscultation [] Abdomen: Bowel sounds normal, soft, no tenderness, no masses, no pulsatile masses. [] Skin: Warm, dry, no erythema, no rash. [] Neurologic: Alert and oriented X 3, normal motor function, normal sensory function, no focal deficits noted. [] Psychologic: Affect normal, judgement normal, mood normal. [] Current Patient Data Vital Signs Vital Signs Date Time Temp Pulse Resp B/P (MAP) Pulse Ox O2 Delivery O2 Flow Rate FiO2 05/12/19 11:50 97.8 81 16 138/67 (90) 95 Room Air 97.8 EKG EKG [] Radiology/Procedures Radiology/Procedures [] Course & Med Decision Making Course & Med Decision Making Vital signs within normal limits. Lungs are clear to auscultation in all lobes. Examining bilateral ears tympanic be seen due to wax impaction. No tenderness, redness or swelling of the ear canal. This will be irrigated by nurse and I will reexamine the tympanic bilaterally. After much irrigation I am able to see part of the ear drum in the right ear and patient states he can hear better out of that ear. The ear canals bilaterally are becoming tender for the patient due to the irrigation and using the currette. Lidocaine is now applied in the left ear before more irrigation is attempted. After lidocaine was placed in the ear patient is not tolerating any more ear irrigation in the canal is becoming very tender and reddened. I've spoken to the daughter and the standing in the room and told them that since patient is not tolerating the irrigation of the ears and ear canals are becoming very tender and reddened that we would give Ciprodex antibiotic drops of which should soak through the earwax and soften it up enough to get out. I also told him to follow up with primary care provider. I told nurses to reinforce is education upon discharge. I have consulted with Dr Chowdhury on this patient and she states she give him Ciprodex and he can follow up with primary care provider. Dragon Disclaimer Dragon Disclaimer This electronic medical record was generated, in whole or in part, using a voice recognition dictation system. Departure Departure Impression: Primary Impression: Impacted ear wax Disposition: 01 HOME, SELF-CARE Condition: STABLE Referrals: RONEL OQUENDO DO (PCP) Patient Instructions: Cerumen Impaction Additional Instructions: Follow-up with primary care provider if needed. Scripts Ciprofloxacin Hcl/Dexameth (CIPRODEX OTIC SUSPENSION) 7.5 Ml Drops.susp 4 DROP EACH EAR BID for 5 Days, #1 BOTTLE Prov: AZAM ESTRELLA FREIGHT ADJUSTER 05/12/19 Problem Qualifiers Primary Impression: Impacted ear wax Laterality: bilateral Qualified Codes: H61.23 - Impacted cerumen, bilateral AZAM ESTRELLA FREIGHT ADJUSTER May 12, 2019 11:41
[2019-05-12 11:50] VITALS: BP 138/67
[2019-05-12] MEDS ORDERED: CIPR7.5D EACH EAR ×2 (12:25→12:51)
== END 2019-05-12 13:06 | disposition home or self-care (01) ==
LOC: ER 11:19
DX: H61.23 Impacted cerumen, bilateral (principal); E11.9 Type 2 diabetes mellitus without complications; E78.00 Pure hypercholesterolemia, unspecified; I10 Essential (primary) hypertension; Z86.73 Personal history of transient ischemic attack (TIA), and cerebral infarction without residual deficits
CPT/HCPCS: 69210; 99284